=== PATIENT | male | born 1990 | race Caucasian/White ===

== ENCOUNTER 2019-07-20 20:22 | Emergency (ER) | payer SELFPAY ==
[2019-07-20] MEDS ORDERED: ASPIRIN 81 MG TABLET, CHEWABLE PO ONE (20:44)
[2019-07-20] MEDS ORDERED: ACETAMINOPHEN 325 MG TABLET PO ONE (20:44)
--- NOTE | 2019-07-20 20:46 | ER Document Report ---
ED Medical Screen (RME) - General Chief Complaint: Breathing Difficulty Stated Complaint: DIFFICULTY BREATHING Time Seen by Provider: 07/20/19 20:39 Mode of Arrival: Wheelchair Information source: Patient Notes: Patient presents complaining of cough and body aches chest and upper back pain. Patient states that he has had cough for the past 3 days. Patient reports nausea lightheadedness and dizziness. Patient states his hands were cramping up earlier today. I have greeted and performed a rapid initial assessment of this patient. A comprehensive ED assessment and evaluation of the patient, analysis of test results and completion of the medical decision making process will be conducted by additional ED providers. Physical Exam - Vital signs Vitals: Temp Pulse Resp BP Pulse Ox 98.8 F 73 18 120/85 97 07/20/19 20:29 07/20/19 20:29 07/20/19 20:29 07/20/19 20:29 07/20/19 20:29 - Respiratory Respiratory status: No respiratory distress Breath sounds: Nonproductive cough - Cardiovascular Rhythm: Regular Heart sounds: S1 appreciated, S2 appreciated Course - Vital Signs Vital signs: Temp Pulse Resp BP Pulse Ox 98.8 F 73 18 120/85 97 07/20/19 20:29 07/20/19 20:29 07/20/19 20:29 07/20/19 20:29 07/20/19 20:29
[2019-07-20 21:18] LABS: ABSOLUTE BASOPHILS # (AUTO) 0.1 10^3/uL (0.0-0.2); ABSOLUTE EOSINOPHILS # (AUTO) 0.2 10^3/uL (0.0-0.6); ABSOLUTE LYMPHOCYTES (AUTO) 2.8 10^3/uL (0.5-4.7); ABSOLUTE MONOCYTES (AUTO) 0.9 10^3/uL (0.1-1.4); ABSOLUTE NEUT (AUTO) 9.2 10^3/uL (1.7-8.2); BASOPHILS % (AUTO) 0.5 % (0-2); EOSINOPHILS % (AUTO) 1.4 % (0-6); HEMATOCRIT 47.9 % (37.9-51.0); HEMOGLOBIN 16.3 g/dL (13.5-17.0); LYMPHOCYTES % (AUTO) 21.6 % (13-45); MEAN CORPUSCULAR HEMOGLOBIN 30.8 pg (27.0-33.4); MEAN CORPUSCULAR VOLUME 90 fl (80-97); MONOCYTES % (AUTO) 6.8 % (3-13); PLATELET COUNT 186 10^3/uL (150-450); RED CELL DISTRIBUTION WIDTH 13.2 % (11.5-14.0); SEGMENTED NEUTROPHILS % (AUTO) 69.7 % (42-78); TOTAL CELLS COUNTED % (AUTO) 100 %; WHITE BLOOD COUNT 13.2 10^3/uL (4.0-10.5)
--- NOTE | 2019-07-20 21:24 | RADIOLOGY REPORT (SQ) ---
EXAM DESCRIPTION: [facility]: XR CHEST 2 VIEWS Views: 2 CLINICAL HISTORY: 29 years Male, c COMPARISON: None. FINDINGS: The lungs are clear. No pneumothorax or significant pleural effusion. Cardiomediastinal silhouette is within normal limits. Bony structures are unremarkable for age. IMPRESSION: 1. No acute cardiothoracic abnormality.
[2019-07-20 21:33] LABS: ALBUMIN 4.4 g/dL (3.5-5.0); ALKALINE PHOSPHATASE 58 U/L (38-126); ANION GAP 9 (5-19); ASPARTATE AMINO TRANSFERASE 27 U/L (17-59); BILIRUBIN,DIRECT 0.1 mg/dL (0.0-0.4); BILIRUBIN,TOTAL 0.8 mg/dL (0.2-1.3); BLOOD UREA NITROGEN 12 mg/dL (7-20); CALCIUM 9.3 mg/dL (8.4-10.2); CARBON DIOXIDE 27 mmol/L (22-30); CHLORIDE 105 mmol/L (98-107); GLUCOSE 93 mg/dL (75-110); POTASSIUM 3.7 mmol/L (3.6-5.0); TOTAL PROTEIN 7.2 g/dL (6.3-8.2)
[2019-07-20] MEDS ORDERED: ONDANSETRON 4 MG TAB.RAPDIS PO ONE (23:43)
[2019-07-20] MEDS ORDERED: KETOROLAC TROMETHAMINE 60 MG/2 ML SDV IM ONE (23:43)
--- NOTE | 2019-07-20 23:45 | ER Document Report ---
Doctor's Note Notes: 07/20/19 23:44 29-year-old male presents with flulike symptoms for the past 3 days. Patient states he has had a cough, generalized body aches, nausea. Patient appears unwell but nontoxic. Lungs clear to auscultation bilaterally. Regular rate and rhythm. Abdomen soft nontender diffusely. Chest x-ray is negative lab work shows mild leukocytosis. Flu test added on with Toradol and Zofran for nausea.
[2019-07-20] MEDS ORDERED: ACETAMINOPHEN 325 MG TABLET ONE (23:50)
[2019-07-21] MEDS ORDERED: CEFTRIAXONE INJ 1000 MG VIAL IM ONE (00:27)
[2019-07-21] MEDS ORDERED: DEXAMETHASONE SOD PHOS INJ 10 MG/1 ML VIAL IM ONE (00:28)
--- NOTE | 2019-07-21 00:29 | ER Document Report ---
ED Respiratory Problem - General Chief Complaint: Flu Symptoms Stated Complaint: DIFFICULTY BREATHING Time Seen by Provider: 07/20/19 20:39 Mode of Arrival: Wheelchair Notes: 29-year-old man presents with a history of sinus infections. Now has purulent nasal drainage and tenderness around the frontal and maxillary sinus regions. He has had intermittent sweats and chills. Denies shortness of breath or palpitations. He has been using ibth-ezz-ibquwwt medications as well as Tylenol and ibuprofen with no improvement. TRAVEL OUTSIDE OF THE [place] IN LAST 30 DAYS: No - Related Data Allergies/Adverse Reactions: No Known Allergies Allergy (Unverified 07/20/19 20:53) Home Medications: denies Past Medical History - General Information source: Patient - Social History Smoking Status: Current Every Day Smoker Frequency of alcohol use: Rare Drug Abuse: Marijuana Family History: Reviewed & Not Pertinent Patient has suicidal ideation: No Patient has homicidal ideation: No Review of Systems - Review of Systems Notes: Constitutional: + Fever. HENT: + Sore throat, + nasal congestion, + sinus pressure/pain. Eyes: Negative for visual changes. Cardiovascular: Negative for chest pain. Respiratory: + Cough, shortness of breath. Gastrointestinal: Negative for abdominal pain, vomiting or diarrhea. Genitourinary: Negative for dysuria. Musculoskeletal: + Myalgias Skin: Negative for rash. Neurological: Negative for headaches, weakness or numbness. 10 point ROS negative except as marked above and in HPI. Physical Exam - Vital signs Vitals: Temp Pulse Resp BP Pulse Ox 98.8 F 73 18 120/85 97 07/20/19 20:29 07/20/19 20:29 07/20/19 20:29 07/20/19 20:29 07/20/19 20:29 - Notes Notes: PHYSICAL EXAMINATION: Physical Exam: General: Well-nourished well-developed male in no acute distress HEENT: NC/AT, pupils equal round and reactive to light, MM moist,nares bilateral purulent nasal drainage, thick yellow-greenish mucus, boggy turbinates, posterior pharyngeal erythema, no exudate + tenderness over the frontal and maxillary sinuses. Neck: supple, no adenopathy, no masses. Lungs: clear, no wheezing, no rales no rhonchi CVS: Regular rate and rhythm no murmur gallop or rub Abdomen: Soft active nontender, no masses, no hepatosplenomegaly Ext: No edema clubbing or cyanosis. Neuro: Alert and responsive, moving all 4 extremities on command, cranial nerves intact. Skin: Intact no open lesions, no rash PSYCH: Normal mood, normal affect. Course - Re-evaluation Re-evalutation: 07/21/19 01:45 Patient is given a IM dose of Rocephin 1 g and Decadron 10 mg. I have discussed the fact that his findings are more compatible with sinusitis and influenza. He will be discharged with oral antibiotics and decongestant medications with a steroid taper Dosepak. The patient and family are in agreement with that plan and understand that he should follow-up with his primary care doctor as needed. - Vital Signs Vital signs: Temp Pulse Resp BP Pulse Ox 98.4 F 57 L 18 120/66 97 07/21/19 02:02 07/21/19 02:02 07/20/19 20:42 07/21/19 02:02 07/21/19 02:02 - Laboratory Result Diagrams: 07/20/19 20:50 07/20/19 20:50 Laboratory results interpreted by me: 07/20/19 20:50 WBC 13.2 H Absolute Neuts (auto) 9.2 H 07/21/19 01:55 I have reviewed laboratory data and used this information for the treatment decisions regarding the patient. - Diagnostic Test Radiology reviewed: Image reviewed, Reports reviewed - Chest x-ray: No acute infiltrate or effusion. Discharge - Discharge Clinical Impression: Acute sinusitis Qualifiers: Sinusitis location: pansinusitis Recurrence: recurrent Qualified Code(s): J01.41 - Acute recurrent pansinusitis Condition: Good Disposition: HOME, SELF-CARE Instructions: Acetaminophen, Sinusitis ([facility]) Additional Instructions: Please use the medications as prescribed Augmentin, prednisone, and Claritin-D. Push fluids, use Tylenol and ibuprofen for pain and or fever Follow-up with your primary care doctor as needed. Prescriptions: Amox Tr/Potassium Clavulanate [Augmentin 875-125 Tablet] 1 tab PO BID 10 Days #20 tablet Loratadine/Pseudoephedrine Sul [Claritin-D 12 Hour Tablet] 1 each PO BID #20 tab.sr.12h Prednisone [Deltasone 20 mg Tablet] 1 tab PO BID 5 Days #10 tablet
[2019-07-21] MEDS ORDERED: LIDOCAINE 1% INJ (10 MG/ML) 10 ML MDV ONE (00:40)
[2019-07-21 00:41] LABS: A TYPE INFLUENZA AG NEGATIVE (NEGATIVE); B INFLUENZA AG NEGATIVE (NEGATIVE)
--- NOTE | 2019-07-21 01:17 | EKG REPORT ---
SEVERITY:- ABNORMAL ECG - SINUS RHYTHM BORDERLINE T ABNORMALITIES, INFERIOR LEADS : Confirmed by: Deborah Ibanez 21-Jul-2019 01:16:55
[2019-07-21 02:17] VITALS: BP 120/66
== END 2019-07-21 02:02 | disposition home or self-care (01) ==
LOC: ER 20:22
DX: J01.41 Acute recurrent pansinusitis (principal); R09.89 Other specified symptoms and signs involving the circulatory and respiratory systems; R51 Headache; R61 Generalized hyperhidrosis; J02.9 Acute pharyngitis, unspecified; R05 Cough; R06.02 Shortness of breath; M79.10 Myalgia, unspecified site; F17.200 Nicotine dependence, unspecified, uncomplicated
CPT/HCPCS: 93005; 99285; 96372; 36415; 85025; 80053; 84484; 87804; 71046; 93010; J1885; S0119; J0696; J1100

== ENCOUNTER 2020-07-11 11:55 | Emergency (ER) | payer SELFPAY ==
[2020-07-11] MEDS ORDERED: DICYCLOMINE HCL INJ 20 MG/2 ML AMPULE IM ONE (12:53)
[2020-07-11] MEDS ORDERED: ONDANSETRON 4 MG TAB.RAPDIS PO ONE (12:53)
[2020-07-11] MEDS ORDERED: ACETAMINOPHEN 325 MG TABLET PO ONE (12:54)
--- NOTE | 2020-07-11 13:06 | RADIOLOGY REPORT (SQ) ---
EXAM DESCRIPTION: CHEST SINGLE VIEW IMAGES COMPLETED DATE/TIME: 07/11/2020 12:59 pm REASON FOR STUDY: chest pain COMPARISON: Chest radiographs 07/20/2018 EXAM PARAMETERS: NUMBER OF VIEWS: One view. TECHNIQUE: Single frontal radiographic view of the chest acquired. RADIATION DOSE: NA LIMITATIONS: None. FINDINGS: LUNGS AND PLEURA: No opacities, masses or pneumothorax. No pleural effusion. MEDIASTINUM AND HILAR STRUCTURES: No masses. Contour normal. HEART AND VASCULAR STRUCTURES: Heart normal in size. Normal vasculature. BONES: No acute findings. HARDWARE: None in the chest. OTHER: No other significant finding. IMPRESSION: NO ACUTE RADIOGRAPHIC FINDING IN THE CHEST. TECHNICAL DOCUMENTATION: JOB ID: [id number] 2010 [employer]- All Rights Reserved Reading location - IP/workstation name: [email or web address]
[2020-07-11 13:34] LABS: ABSOLUTE BASOPHILS # (AUTO) 0.1 10^3/uL (0.0-0.2); ABSOLUTE EOSINOPHILS # (AUTO) 0.2 10^3/uL (0.0-0.6); ABSOLUTE LYMPHOCYTES (AUTO) 2.9 10^3/uL (0.5-4.7); ABSOLUTE MONOCYTES (AUTO) 1.2 10^3/uL (0.1-1.4); BASOPHILS % (AUTO) 0.4 % (0-2); EOSINOPHILS % (AUTO) 1.5 % (0-6); HEMATOCRIT 49.2 % (37.9-51.0); HEMOGLOBIN 16.5 g/dL (13.5-17.0); LYMPHOCYTES % (AUTO) 18.8 % (13-45); MEAN CORPUSCULAR HEMOGLOBIN 30.4 pg (27.0-33.4); MEAN CORPUSCULAR HGB CONC 33.5 g/dL (32.0-36.0); MEAN CORPUSCULAR VOLUME 91 fl (80-97); MONOCYTES % (AUTO) 7.8 % (3-13); PLATELET COUNT 175 10^3/uL (150-450); RED BLOOD COUNT 5.43 10^6/uL (4.35-5.55); RED CELL DISTRIBUTION WIDTH 12.8 % (11.5-14.0); SEGMENTED NEUTROPHILS % (AUTO) 71.5 % (42-78); TOTAL CELLS COUNTED % (AUTO) 100 %; WHITE BLOOD COUNT 15.4 10^3/uL (4.0-10.5)
[2020-07-11 13:38] LABS: APPEARANCE,URINE CLEAR; BILIRUBIN,URINE NEGATIVE (NEGATIVE); COLOR,URINE YELLOW; GLUCOSE, URINE NEGATIVE (NEGATIVE); KETONES,URINE 20 mg/dL (NEGATIVE); LEUKOCYTE ESTERASE,URINE NEGATIVE (NEGATIVE); NITRITE,URINE NEGATIVE (NEGATIVE); PROTEIN,URINE 30 mg/dL (NEGATIVE); UROBILINOGEN,URINE NEGATIVE mg/dL (<2.0)
[2020-07-11 13:54] LABS: ALBUMIN 4.6 g/dL (3.5-5.0); ALKALINE PHOSPHATASE 53 U/L (38-126); ANION GAP 11 (5-19); ASPARTATE AMINO TRANSFERASE 27 U/L (17-59); BILIRUBIN,DIRECT 0.1 mg/dL (0.0-0.4); BILIRUBIN,TOTAL 1.1 mg/dL (0.2-1.3); BLOOD UREA NITROGEN 20 mg/dL (7-20); CALCIUM 9.5 mg/dL (8.4-10.2); CARBON DIOXIDE 23 mmol/L (22-30); CHLORIDE 105 mmol/L (98-107); GLUCOSE 97 mg/dL (75-110); TOTAL PROTEIN 7.3 g/dL (6.3-8.2)
[2020-07-11 13:56] LABS: URINE AMPHETAMINES SCREEN NEGATIVE; URINE BARBITURATES SCREEN NEGATIVE; URINE BENZODIAZEPINES SCREEN NEGATIVE; URINE COCAINE SCREEN NEGATIVE; URINE METHADONE SCREEN NEGATIVE; URINE PHENCYCLIDINE SCREEN NEGATIVE
[2020-07-11 14:04] LABS: URINE MARIJUANA (THC) SCREEN UNCONFIRMED POSITIVE
--- NOTE | 2020-07-11 15:21 | ER Document Report ---
ED GI/ - General Chief Complaint: Abdominal Pain Stated Complaint: SHORT OF BREATH,DIARRHEA,CHEST PAIN Time Seen by Provider: 07/11/20 12:28 Primary Care Provider: [facility] [Provider Group] - Follow up in 1 week Notes: Patient is a 30-year-old male presents emergency departmentWith a chief com plaint of left upper abdominal pain, nausea, and vomiting. Patient also reports diarrhea. Patient was tested for COVID-19 prior to arrival at an urgent care. He states that the results for the rapid test for negative, but pending the official test, as has been sent out. Patient reports back pain from his upper back all the way down to his lumbar spine. Denies any history of cancer, IV drug abuse, or any numbness or tingling down legs or arms. Patient states that he is an everyday smoker. States that he has felt feverish, but has not actually had a fever. Patient reports that his vomitus has been green in color. Denies any right upper abdominal pain. Denies any hematemesis or hematochezia. TRAVEL OUTSIDE OF THE [place] IN LAST 30 DAYS: No - Related Data Allergies/Adverse Reactions: No Known Allergies Allergy (Verified 07/11/20 12:29) Past Medical History - Social History Smoking Status: Current Every Day Smoker Drug Abuse: Marijuana Family History: Reviewed & Not Pertinent Review of Systems - Review of Systems Notes: REVIEW OF SYSTEMS: CONSTITUTIONAL : Denies recent illness. Denies recent unintentional weight loss. See HPI. EENT: Denies eye, ear, throat, or mouth pain, discharge, or symptoms. Denies nasal or sinus congestion. CARDIOVASCULAR: Denies chest pain. RESPIRATORY: Denies shortness of breath, cough, congestion, difficulty breathing, or wheezing. GASTROINTESTINAL: See HPI. GENITOURINARY: Denies difficulty urinating, burning, blood in urine, urgency or frequency. MUSCULOSKELETAL: Denies neck and back pain. Denies joint pain or swelling. SKIN: Denies rash, itchiness, or lesions HEMATOLOGIC : Denies easy bruising or bleeding. LYMPHATIC: Denies swollen, painful, enlarged glands. NEUROLOGICAL: Denies no numbness or tingling denies weakness. Denies headache. Denies altered mental status. Denies alteration in speech. PSYCHIATRIC: Denies stress, anxiety, alteration in sleep patterns, or depression. All other systems reviewed and negative. Physical Exam - Vital signs Vitals: Temp Pulse Resp BP Pulse Ox 98.2 F 69 20 114/74 99 07/11/20 12:14 07/11/20 12:14 07/11/20 12:14 07/11/20 12:14 07/11/20 12:14 - Notes Notes: PHYSICAL EXAMINATION: GENERAL: Appears well, healthy, well-nourished, no acute distress. HEAD: Normocephalic, atraumatic. EYES: PERRL, conjunctiva normal, all extraocular movements intact, sclera nonicteric ENT: Moist mucous membranes. NECK: Supple, no noticeable swelling, redness, rash. Normal range of motion. LUNGS: Equal breath sounds bilaterally and clear to auscultation. No wheezes rales or rhonchi. CARDIOVASCULAR: S1-S2, regular rate, regular rhythm. Radial pulses 2+, normal. ABDOMEN: Normoactive bowel sounds. Soft, tender left upper abdomen, no guarding, no rebound tenderness, and no masses palpated. EXTREMITIES: Normal strength and range of motion, no pitting or edema. No cyanosis. NEUROLOGICAL: Moves all extremities upon command. Strength 5/5 in all extremities. PSYCH: Normal mood, normal affect. SKIN: Warm, dry. No rash, lesions, ulcerations noted. Normal skin turgor. Course - Re-evaluation Re-evalutation: 07/11/20 15:16 Hematology shows a leukocytosis of 15,400, most likely due to the patient vomiting. Chemistries are unremarkable. Lipase is normal. LFTs are also normal. Patient has ketones and proteins in his urine, consistent with dehydration. The patient will be sent home with nausea medication and Bentyl. He states that he does feel better after receiving the dose of Bentyl and Tylenol. Urine drug sc reen shows that he is positive for marijuana, which he admitted to. Advised the patient to cut back on his smoking and marijuana use. He is in agreement with this plan. Follow-up precautions were given. Verbal discharge instructions were given to the patient. They verbalized understanding. They are stable for discharge. 07/11/20 15:45 Patient's primary nurse had mentioned that the patient was having ear pain, but the patient did not express any ear pain to me. He also then proceeded to say he had teeth pain. Patient reported that he had not been to a dentist in many years. At this time, will place patient on Augmentin. Follow-up precautions were given. Verbal discharge instructions were given to the patient. They verbalized understanding. They are stable for discharge. - Vital Signs Vital signs: Temp Pulse Resp BP Pulse Ox 97.9 F 62 16 124/76 100 07/11/20 15:45 07/11/20 15:45 07/11/20 15:45 07/11/20 15:45 07/11/20 15:45 - Laboratory Results Result Diagrams: 07/11/20 13:00 07/11/20 13:00 Laboratory Results Interpreted: 07/11/20 07/11/20 13:00 13:10 WBC 15.4 H Absolute Neuts (auto) 11.0 H Urine Protein 30 H Urine Ketones 20 H Critical Laboratory Results Reviewed: No Critical Results - Radiology Results Critical Radiology Results Reviewed: No Critical Results Discharge - Discharge Clinical Impression: Nausea, Person under investigation for COVID-19, Marijuana use, Tooth pain Abdominal pain Qualifiers: Abdominal location: left upper quadrant Qualified Code(s): R10.12 - Left upper quadrant pain Back pain Qualifiers: Back pain location: back pain in unspecified location Chronicity: acute Back pain laterality: midline Qualified Code(s): M54.9 - Dorsalgia, unspecified Condition: Stable Disposition: HOME, SELF-CARE Instructions: COVID-19 Guidance for Persons Under Investigation Additional Instructions: You were seen today in the emergency department for abdominal pain and back pain. Your labs are reassuring. As we discussed, cut back on your tobacco and marijuana use. Please stay in quarantine until you get your results from the urgent care. Take the Bentyl as needed for abdominal pain. Take the nausea medication as needed for nausea. You can also take Tylenol 1000 mg every 6 hours for fever or body aches. Return if your symptoms are worse. You are also being treated for ear pain and teeth pain. Follow-up with the dentist in regards to this visit. You can follow-up with the [facility]. Prescriptions: Amoxicillin/Potassium Clav [Augmentin 875-125 Tablet] 1 tab PO BID #20 tab Dicyclomine HCl [Bentyl 20 mg Tablet] 20 mg PO QID PRN #30 tablet PRN Reason: Metoclopramide HCl [Reglan 10 mg Tablet] 1 tab PO ASDIR PRN #25 tablet PRN Reason: Referrals: [facility] [Provider Group] - Follow up in 1 week
[2020-07-11 15:50] VITALS: BP 124/76
--- NOTE | 2020-07-12 00:14 | EKG REPORT ---
SEVERITY:- NORMAL ECG - SINUS RHYTHM : Confirmed by: Deborah Ibanez 12-Jul-2020 00:14:03
== END 2020-07-11 15:45 | disposition home or self-care (01) ==
LOC: ER 11:55
DX: R10.12 Left upper quadrant pain (principal); R11.2 Nausea with vomiting, unspecified; R19.7 Diarrhea, unspecified; K08.9 Disorder of teeth and supporting structures, unspecified; F12.90 Cannabis use, unspecified, uncomplicated; Z20.828 Contact with and (suspected) exposure to other viral communicable diseases; F17.200 Nicotine dependence, unspecified, uncomplicated
CPT/HCPCS: 93005; 99285; 96372; 36415; 83690; 85025; 80053; 81001; 80307; 71045; 93010; J0500; S0119